=== PATIENT | male | born 1955 | race Caucasian/White ===

== ENCOUNTER 2021-07-04 12:31 | Outpatient (CLI) | payer OTHER, MEDICARE, SELFPAY ==
--- NOTE | ~2021-07-04 | CT_ITS ---
EXAMINATION: CT abdomen pelvis wo/w con EXAM DATE: 07/04/2021 13:53 INDICATION: microscopic hematuria. TECHNIQUE: Spiral CT of the abdomen and pelvis was performed without contrast. The patient was then injected with small bolus intravenous Omnipaque 350, followed by delay of approximately 10 minutes to allow collecting system to opacify. A post contrast scan abdomen and pelvis was performed during inj ection of remaining contrast. A total of 130 cc intravenous contrast was administered. The dose-rei th product (DLP) for this examination was 1723.42 mGy-cm. The exposure was tailored according to pat ient size (auto mA exposure control), and iterative reconstruction (ASIR) was used as additional dose reduction technique. There is no prior study for comparison. FINDINGS: There is diffuse omental nodularity, peritoneal carcinomatosis with small amount of ascites and scalloping of the liver margin. 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 Pericecal lymph n ode measuring 1 x 6 x 1.1 cm. Mildly enlarged epicardial lymph node. There is no hydronephrosis or nephrolithiasis. The kidneys enhance symmetrically. There are no subramanian spicious renal lesions. The calyces and opacified portions of ureters are unremarkable, without fill ing defects or focal suspicious strictures. The bladder is unremarkable. There is moderate prostatom egaly. The liver, spleen, adrenal glands and pancreas are unremarkable. Peripherally calcified 1 cm gallsto ne. mall umbilical fat-containing hernia. The stomach and small bowel are unremarkable. There is e xpected amount of colonic stool. No free intraperitoneal gas. The heart is normal in size. There are no pericardial or pleural effusions. The lung bases are unremarkable. There is an epicardial ly mph node measuring 8 x 10 mm. There are no osteoblastic or osteolytic lesions identified. IMPRESSION: 1. 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 Mildly enlarged perice kermit, epicardial lymph nodes. 2. Prostatomegaly. Otherwise unremarkable genitourinary system. 3. Cholelithiasis. Reviewed, dictated and finalized at location A. OR COMMISSIONS ANALYST IMPRESSION: 1. 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 Mildly enlarged pericecal, epicardial lymph nodes. 2. Prostatomegaly. Otherwise unremarkable genitourinary system. 3. Cholelithiasis.
--- NOTE | ~2021-07-04 | XR_ITS ---
XR abdomen/kub 1V 07/04/2021 13:08 Indication: Microscopic hematuria. Pelvic pain. Procedure: KUB Comparison: No prior studies for comparison. Findings: Bowel gas pattern is nonobstructive. There is a round calcification in the right abdomen at the L2-3 level, likely a gallstone. No definite renal stones. Mild lumbar spondylosis. Impression: 1: Round calcification right abdomen, likely cholelithiasis. Reviewed, dictated and finalized at location B. ATIONS SUPERVISOR 2ND SHIFT Impression: 1: Round calcification right abdomen, likely cholelithiasis.
[2021-07-04 13:34] LABS: Estimated Glomerular Filt Rate > 60
== END 2021-07-04 12:32 | disposition home or self-care (01) ==
LOC: ANHIMG 12:37
PROVIDERS: PCP Family Medicine; Visit Provider Urology
DX: R31.29 Other microscopic hematuria (principal); K80.20 Calculus of gallbladder without cholecystitis without obstruction; N40.0 Benign prostatic hyperplasia without lower urinary tract symptoms
CPT/HCPCS: 74018; 74178; Q9967

== ENCOUNTER 2023-03-23 10:15 | Emergency (ER) | payer OTHER, MEDICARE, SELFPAY ==
[2023-03-23 10:30] VITALS: BP 110/80; PULSE 100; RESP 16; TEMP 36.6; O2SAT 95
--- NOTE | 2023-03-23 10:37 | ED.GENADULT ---
HPI - General Adult General Chief complaint: Head Injury Stated complaint: head injury after fall - No LOC - no blood thinner Time Seen by Provider: 03/23/23 10:28 Source: patient Mode of arrival: ambulatory Limitations: no limitations History of Present Illness HPI narrative: This is a 68-year-old male who presents to the ED with chief complaint of head injury that occurred just prior to arrival. Patient works as a [employer]. He states he was outside this morning beginning work when he accidentally tripped on something on the ground and hit his head on the concrete. Denies any LOC, neck pain. He reports a little bit of throbbing pain at the site of the laceration to the right forehead just above the eye. Otherwise denies any further site of pain or injury. Denies numbness, weakness. He is not on blood thinners. States his tetanus is up-to-date. Related Data Home Medications Medication Instructions Recorded Confirmed aspirin 81 mg tablet,delayed 81 mg PO DAILY 10/31/19 06/08/20 release omeprazole 20 mg capsule,delayed 20 mg PO DAILY 10/31/19 06/08/20 release Allergies Allergy/AdvReac Type Severity Reaction Status Date / Time No Known Allergies Allergy Verified 03/23/23 10:34 Review of Systems Review of Systems: All systems as dictated in [facility] Past Medical History Medical History Hepatitis C antibody test negative Surgical History Surgical History H/O colonoscopy (~08/2016) Family History Family History Mother Family history of malignant neoplasm of breast in first degree relative Hypertension Family history of elevated blood lipids Father Family history of congestive heart failure Diabetes mellitus Hypertension Family history of elevated blood lipids Acute myocardial infarction Family history of coronary artery disease Social History Social History Smoking status: Light tobacco smoker Tobacco type: cigars Alcohol intake: current Exam Narrative: GENERAL: Well-appearing, well-nourished, and in no acute distress. HEAD: Normocephalic, atraumatic. EYES: PERRLA and EOMI. ENT: Nares clear, no rhinorrhea or epistaxis. Mucous membranes moist. Oropharynx without tonsillar hypertrophy exudate or other lesions. NECK: Supple. No adenopathy or masses. CHEST: No respiratory distress. Clear to auscultation. No wheezes rales or rhonchi HEART: Regular rate and rhythm. No murmur heard. Normal peripheral pulses. ABDOMEN: Soft, nontender, nondistended, normal active bowel sounds. MSK: Normal range of motion. No edema. SKIN: There is a 2 cm laceration to the right superior orbit/forehead. It is located above the eyebrow and horizontally oriented. No active bleeding. No overt contamination. NEURO: Alert and oriented x3. No focal deficits. PSYCH: Normal mood and affect. Course Course Emergency Course: Patient declines CT scans of the head and neck today. Vital Signs Vital signs: Vital Signs Temperature 97.8 F 03/23/23 10:30 Pulse Rate 100 03/23/23 10:30 Respiratory Rate 16 03/23/23 10:30 Blood Pressure 110/80 03/23/23 10:30 Pulse Oximetry 95 03/23/23 10:30 Oxygen Delivery Room Air 03/23/23 10:30 Temperature 97.8 F 03/23/23 10:30 Pulse Rate 100 03/23/23 10:30 Respiratory Rate 16 03/23/23 10:30 Blood Pressure 110/80 03/23/23 10:30 Pulse Oximetry 95 03/23/23 10:30 Oxygen Delivery Room Air 03/23/23 10:30 Procedures Laceration Laceration 1: Date: 03/23/23 Time: 10:00 Site: face Side (If applicable): right Description: linear Depth: simple, single layer Local Anesthetic: lidocaine 1% and with epi Amount of anesthesia used (mL): 2
== END 2023-03-23 11:25 | disposition home or self-care (01) ==
PROVIDERS: Emergency Provider Physician Assistant; PCP Family Medicine
DX: S01.81XA Laceration without foreign body of other part of head, initial encounter (principal); F17.290 Nicotine dependence, other tobacco product, uncomplicated; W18.09XA Striking against other object with subsequent fall, initial encounter
CPT/HCPCS: 12011; 99282